=== PATIENT | female | born 1995 | race Asian ===

== ENCOUNTER 2024-04-19 10:45 | Outpatient (CLI) | payer BC ==
[2024-04-19 11:30] LABS: #Basophils Less than 0.03 10x3/uL (0.0-0.2); #Monocytes 0.35 10x3/uL (0.0-1.1); #Neutrophils 3.83 10x3/uL (1.5-8.4); %Basophils 0.3 % (0.0-2.0); %Eosinophils 3.3 % (0.0-6.0); %Lymphocytes 26.5 % (18.0-47.0); %Monocytes 5.8 % (0.0-10.0); %Neutrophils 63.8 % (40.0-75.0); Hemoglobin 12.6 g/dL (12.0-15.5); Mean Corpuscular HGB CONC 33.2 g/dL (32.0-36.0); Mean Corpuscular Hemoglobin 30.2 pg (27.0-33.0); Mean Corpuscular Volume 91.1 fL (81.6-98.3); Mean Platelet Volume 9.7 fL (7.4-10.4); Platelet Count 253 10x3/uL (150-450); RBC Distribution Width 11.9 % (11.5-14.5); Red Blood Cell (RBC) Count 4.17 10x6/uL (3.90-5.03); White Blood Cell (WBC) Count 6.01 10x3/uL (3.5-10.5)
[2024-04-19 12:14] LABS: BHCG - Serum Negative (NEGATIVE); Pregs Control Background? CLEAR/WHITE (CLR/WHITE); Pregs Control Bar Appear? YES (CONTROL BAR)
[2024-04-19 12:17] LABS: Anion Gap 11 mmol/L (10-20); BUN (Urea Nitrogen) 6 mg/dL (7.0-18.7); Calc. Creatinine Clearance 0 mL/min (70-130); Carbon Dioxide 25 mmol/L (22-29); Chloride 107 mmol/L (98-107); Estimated GFR 126; Glucose 92 mg/dL (70-105); Potassium 3.9 mmol/L (3.5-5.1); Sodium 139 mmol/L (136-145)
== END 2024-04-19 10:46 | disposition home or self-care (01) ==
LOC: CSHLAB 10:45
PROVIDERS: ATTEND Specialist
DX: Z01.812 Encounter for preprocedural laboratory examination (principal); N63.20 Unspecified lump in the left breast, unspecified quadrant
CPT/HCPCS: 80048; 84703; 85025

== ENCOUNTER 2024-05-02 05:55 | Day surgery (SDC) | payer BC ==
[2024-04-19 11:16] VITALS: BMI 34.4
[2024-05-02] MEDS ORDERED: Ketorolac Tromethamine 30 MG (1 mL) VIAL ONE (06:42)
[2024-05-02] MEDS ORDERED: Acetaminophen 500 MG TAB ONE (06:42)
[2024-05-02] MEDS ORDERED: Bupivacaine/Epinephrine 0.25% 30 ML VIAL ONE (06:54)
[2024-05-02] MEDS ORDERED: CEFAZOLIN 2 GM VIAL ONE (06:55)
[2024-05-02] MEDS ORDERED: PROPOFOL 20 ML ONE (07:11)
[2024-05-02] MEDS ORDERED: fentaNYL 50 mcg/mL 1 mL Vial ONE (07:11)
[2024-05-02] MEDS ORDERED: Lidocaine 1% PF 5 ML VIAL ONE (07:12)
[2024-05-02] MEDS ORDERED: Midazolam HCl 2 mg/2 ml Vial ONE (07:25)
[2024-05-02] MEDS ORDERED: Ondansetron PF 4 MG/2 ML Vial ONE (07:40)
[2024-05-02] MEDS ORDERED: Dexamethasone 20 MG/5 ML VIAL ONE (07:40)
[2024-05-02] MEDS ORDERED: PHENYLEPHRINE-NS 100 MCG/ML 10 ML SYRINGE ONE (07:50)
[2024-05-02] MEDS ORDERED: traMADol HCl 50 MG TAB ONE (09:32)
== END 2024-05-02 09:50 | disposition home or self-care (01) ==
LOC: CSHSDC 05:55
PROVIDERS: ATTEND Specialist
PROC: 0HBU0ZZ Excision of Left Breast, Open Approach (ICD-10-PCS; principal; 2024-05-02)
DX: D24.2 Benign neoplasm of left breast (principal); N62 Hypertrophy of breast
CPT/HCPCS: 76098; 88307; C1713; J1100; J1885; J2250; J2405; J2704; J3010